=== PATIENT | female | born 1955 | race Caucasian/White ===

== ENCOUNTER → 2023-10-05 13:42 | Outpatient (REF) | payer OTHER, SELFPAY | LOC: WDC 13:42 | PROVIDERS: ATTENDING PHYSICIAN Obstetrics & Gynecology; FAMILY PHYSICIAN Family Medicine | DX: R92.2 Inconclusive mammogram (principal) | CPT/HCPCS: 76641 ==

== ENCOUNTER → 2024-07-13 06:24 | Day surgery (SDC) | payer OTHER, SELFPAY | LOC: GI 06:24 | PROVIDERS: ATTENDING PHYSICIAN Internal Medicine Gastroenterology | PROC: 0DJD8ZZ Inspection of Lower Intestinal Tract, Via Natural or Artificial Opening Endoscopic (ICD-10-PCS; 2024-07-13) | DX: Z12.11 Encounter for screening for malignant neoplasm of colon (principal); Z80.0 Family history of malignant neoplasm of digestive organs; K64.8 Other hemorrhoids | CPT/HCPCS: G0105 ==

== ENCOUNTER → 2024-10-26 13:15 | Outpatient (REF) | payer OTHER, SELFPAY | LOC: WDC 13:15 | PROVIDERS: ATTENDING PHYSICIAN Obstetrics & Gynecology; FAMILY PHYSICIAN Family Medicine | DX: Z12.31 Encounter for screening mammogram for malignant neoplasm of breast (principal) | CPT/HCPCS: 77063; 77067 ==

== ENCOUNTER → 2024-12-13 13:00 | Outpatient (REF) | payer OTHER, SELFPAY | LOC: WDC 13:00 | PROVIDERS: ATTENDING PHYSICIAN Obstetrics & Gynecology; FAMILY PHYSICIAN Family Medicine | DX: R92.333 Mammographic heterogeneous density, bilateral breasts (principal) | CPT/HCPCS: 76641 ==

== ENCOUNTER → 2025-03-30 11:16 | Outpatient (REF) | payer OTHER, SELFPAY | LOC: HWRAD 11:16 | PROVIDERS: ATTENDING PHYSICIAN Otolaryngology; FAMILY PHYSICIAN Family Medicine | DX: J32.0 Chronic maxillary sinusitis (principal) | CPT/HCPCS: 70486 ==

== ENCOUNTER → 2025-06-13 14:47 | Outpatient (REF) | payer OTHER, SELFPAY | LOC: WDC 14:47 | PROVIDERS: ATTENDING PHYSICIAN Obstetrics & Gynecology; FAMILY PHYSICIAN Family Medicine | DX: R92.8 Other abnormal and inconclusive findings on diagnostic imaging of breast (principal) | CPT/HCPCS: 76642 ==